=== PATIENT | female | born 1940 | race Two or more races ===

== ENCOUNTER 2020-10-12 04:50 | Emergency (ER) | payer MEDICARE, BC ==
[~2020-10-12] VITALS: Ht 157.5 cm; Wt 77.1 kg
--- NOTE | 2020-10-12 04:51 | NUR ---
BIBRA 878 FROM [facility] FOR PT FOUND SITTING ON THE FLOOR NEXT TO HER BED NOTED W/ L SHOULDER BRUISE AND PAIN ON MOVEMENT. PT AAOX2, NOT IN ANY DISTRESS, NO SOB, VSS, NAD NOTED. PENDING ER PROVIDER SANDRA
--- NOTE | 2020-10-12 05:05 | NUR ---
BROUGHT BY RADIOLOGY TO CT
--- NOTE | 2020-10-12 05:05 | NUR ---
PT IS TAKEN TO THE CT
[2020-10-12] MEDS ORDERED: DILTIAZEM HCL 30 MG TABLET ONE (05:34)
[2020-10-12] MEDS ORDERED: OXYC-117 PO (05:44)
--- NOTE | 2020-10-12 05:57 | NUR ---
[facility] ETA [phone]
[2020-10-12] MEDS ORDERED: DILTIAZEM HCL 30 MG TABLET PO ONE (06:00)
--- NOTE | 2020-10-12 06:34 | NUR ---
REPORT GIVEN TO [facility] sociology research assistant
--- NOTE | 2020-10-12 06:35 | NUR ---
REPORT GIVEN TO APRIL STAFF AT [facility]
--- NOTE | 2020-10-12 06:36 | NUR ---
PT LEFT [facility] BACK TO [facility]. PT LEFT IN STABLE CONDITION, VSS, NAD.
[2020-10-12 06:51] VITALS: BP 140/70
== END 2020-10-12 06:51 ==
LOC: ER 04:52
DX: S42.022A Displaced fracture of shaft of left clavicle, initial encounter for closed fracture (principal); I48.91 Unspecified atrial fibrillation; G30.9 Alzheimer's disease, unspecified; F02.80 Dementia in other diseases classified elsewhere, unspecified severity, without behavioral disturbance, psychotic disturbance, mood disturbance, and anxiety; X58.XXXA Exposure to other specified factors, initial encounter; Y93.89 Activity, other specified; Y92.89 Other specified places as the place of occurrence of the external cause; Y99.8 Other external cause status
CPT/HCPCS: 70450-TC; 72125-TC; 73030-TC

== ENCOUNTER 2020-10-27 16:18 | Inpatient (IN) | payer MEDICARE, BC ==
[~2020-10-27] VITALS: Ht 160 cm; Wt 60.3 kg
[~2020-10-27 16:18] MED LIST: OXYC-117 PO
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
[2020-10-27] MEDS ORDERED: RALO60TA14 PO (16:41)
[2020-10-27] MEDS ORDERED: LEVO25TA9 PO (16:41)
[2020-10-27] MEDS ORDERED: DIVA125C5 PO (16:41)
[2020-10-27] MEDS ORDERED: QUET50TA PO (16:41)
[2020-10-27] MEDS ORDERED: FURO40TA5 PO (16:41)
[2020-10-27] MEDS ORDERED: METO-357 PO (16:41)
[2020-10-27] MEDS ORDERED: APIX5TAB PO (16:41)
[2020-10-27] MEDS ORDERED: CHOL200013 PO (16:42)
--- NOTE | 2020-10-27 16:47 | NUR ---
PATIENT CHANGED INTO A GOWN, TAYLOR CATHETER FR16 IN PLACED.
[2020-10-27 17:18] LABS: BASOPHILS # (AUTO) 0.1 /CMM (0.0-0.2); EOSINOPHILS % (AUTO) 1.4 % (0.0-6.0); HEMATOCRIT 42 % (33-45); HEMOGLOBIN 13.9 g/dL (11.5-14.8); LYMPHOCYTES # (AUTO) 1.3 /CMM (0.8-4.8); LYMPHOCYTES % (AUTO) 16.3 % (20.0-44.0); MEAN CORPUSCULAR HGB CONC 33 g/dl (31.0-36.0); MEAN CORPUSCULAR VOLUME 98 fL (82-100); MONOCYTES # (AUTO) 0.5 /CMM (0.1-1.30); MONOCYTES % (AUTO) 6.8 % (2.0-12.0); NEUTROPHILS # (AUTO) 5.7 /CMM (1.8-8.9); NEUTROPHILS % (AUTO) 74.5 % (43.0-81.0); PLATELET COUNT (AUTO) 273 /CMM (150-450); RED BLOOD CELL COUNT(AUTO) 4.23 MIL/uL (4.0-5.2); WHITE BLOOD COUNT (AUTO) 7.7 K/uL (4.3-11.0)
--- NOTE | 2020-10-27 17:22 | NUR ---
PATIENT IS TAKEN TO RADIOLOGY.
[2020-10-27 17:41] LABS: ALANINE AMINOTRANSFERASE 27 U/L (12-78); ALKALINE PHOSPHATASE 145 U/L (46-116); ASPARTATE AMINOTRANSFERASE 28 U/L (15-37); BILIRUBIN,DIRECT 0.1 mg/dL (0.0-0.2); BILIRUBIN,TOTAL 0.5 mg/dL (0.2-1.0); CALCIUM, SERUM 9.3 mg/dL (8.5-10.1); CARBON DIOXIDE 27 mmol/L (21-32); CHLORIDE 102 mmol/L (98-107); CREATININE 1.2 mg/dL (0.6-1.3); GLUCOSE 136 mg/dL (74-106); POTASSIUM 3.8 mmol/L (3.5-5.1); SODIUM SERUM 140 mmol/L (136-145); TOTAL PROTEIN, SERUM 7.2 g/dL (6.4-8.2); UREA NITROGEN, BLOOD 25 mg/dL (7-18)
--- NOTE | 2020-10-27 18:07 | NUR ---
RECIEVED CALL FROM LAB. RAPID COVID19 TEST NEGATIVE.
[2020-10-27] MEDS ORDERED: HYDROMORPHONE 1 MG/1 ML DISP.SYRIN ONE (18:50)
--- NOTE | 2020-10-27 18:54 | NUR ---
ANISHA SLOAN AT BEDSIDE AND GAVE VERBAL ORDER TO GIVE DILAUDID 1MG X1 NOW, PATIENT'S HR IS IN 120S.
--- NOTE | 2020-10-27 18:55 | NUR ---
REQUESTED TELE BED FROM NURSING CONE TREATER.
[2020-10-27] MEDS ORDERED: oxyCODONE/APAP (5/325 MG) 1 UDTAB TABLET PO PRN (19:00)
[2020-10-27] MEDS ORDERED: Z GUARD REMEDY 2 OZ OINT TP PRN (19:00)
[2020-10-27] MEDS ORDERED: ONDANSETRON HCL/PF 4 MG/2 ML VIAL IVP PRN (19:00)
[2020-10-27] MEDS ORDERED: HYDROMORPHONE 1 MG/1 ML DISP.SYRIN IV ONE (19:00)
[2020-10-27] MEDS ORDERED: MAGNESIUM HYDROXIDE 30 ML UDC PO PRN (19:00)
[2020-10-27] MEDS ORDERED: HYDROCODONE/APAP 5/325MG TABLET PO PRN (19:00)
[2020-10-27] MEDS ORDERED: ZOLPIDEM TARTRATE 5 MG TABLET PO PRN (19:00)
[2020-10-27] MEDS ORDERED: ACETAMINOPHEN 325 MG TABLET PO PRN (19:00)
[2020-10-27] MEDS ORDERED: MAG HYDROX/AL HYDROX/SIMETH 30 ML UDC PO PRN (19:00)
--- NOTE | 2020-10-27 19:05 | NUR ---
REC'D REPORT FROM EVA HENDRICKSON FOR RAMY
--- NOTE | 2020-10-27 19:20 | NUR ---
CALLED PHARMACY TO VERIFY MED ORDER
[2020-10-27] MEDS ORDERED: METOPROLOL TARTRATE INJ 5 MG/5 ML AMPUL ONE (19:26)
[2020-10-27] MEDS ORDERED: METOPROLOL TARTRATE INJ 5 MG/5 ML AMPUL IV ONE (19:30)
--- NOTE | 2020-10-27 20:05 | NUR ---
US AT BEDSIDE
--- NOTE | 2020-10-27 20:17 | NUR ---
TELE 116-2
--- NOTE | 2020-10-27 20:22 | NUR ---
ATTEMPTED TO GIVE REPORT RN BUSY. WILL CALL AGAIN
--- NOTE | 2020-10-27 20:45 | NUR ---
REPORT GIVEN TO LISA AT [facility]
[2020-10-27 21:00] VITALS: BP 147/89
--- NOTE | 2020-10-27 21:00 | NUR ---
RN ADMITTING NOTE RECEIVED PATIENT FROM ER [facility]IA [place]; ADMITTING DIAGNOSIS OF L HIP FRACTURE, AFIB, R/O COVID; RESULTS PENDING. PATIENT AO X 1. IN NO S/SX OF ACUTE DISTRESS AT THIS TIME. PATIENT'S BREATHING IS EVEN AND UNLABORED. PATIENT IS ON 2 L OF OXYGEN VIA NC, TOLERATING WELL, SATURATION AT 100%. PATIENT ON TELE MONITOR READING AFIB UNCONTROLLED, HR IS 120-130'S. NOTED IV SITE ON R HAND 20G, AND LFA 18G, BOTH FLUSHING AND PATENT, SALINE LOCKED. NO S/S OF INFECTION OR INFILTRATION. PATIENT ON LEFT SHOULDER SLING, DISCOLORATION NOTED ON THE RIGHT UPPER ARM, PHOTO TAKEN AND PLACED IN CHART. PATIENT KEPT CLEAN , DRY AND COMFORTABLE. SAFETY MEASURES IMPLEMENTED. PATIENT BED ALARM IS ON. HEAD OF BED ELEVATED. BED IS LOCKED, IN LOWEST POSITION AND SIDE RAILS UP. CALL LIGHT WITHIN REACH OF THE PATIENT. ISOLATION PRECAUTIONS IN PLACE. WILL CONTINUE TO MONITOR AND REASSESS FOR ANY CHANGES. WILL ATTEND TO ALL MD ADMITTING ORDERS.
[2020-10-27] MEDS: IV NS 0.9% 1,000 ML IV PRN (22:18)
[2020-10-28] VITALS: BP 138/89
[2020-10-28 04:00] VITALS: BP 107/54
--- NOTE | 2020-10-28 04:11 | NUR ---
RN NOTE NOTED PATIENT AFIB UNCONTROLLED ON THE MONITOR SUSTAINED AT 130-150'S. PAIN MEDICATION ADMINISTERED, TELE READING REMAINS AFIB UNCONTROLLED AT 140'S. DR TOMAS WAS NOTIFIED, RECEIVED ORDERS FOR CARDIZEM 10 MG IV PUSH X1. FORECAST ANALYST WAS MADE AWARE.
[2020-10-28] MEDS: HYDROMORPHONE 1 MG/1 ML DISP.SYRIN IV PRN ×3 (04:20→14:55)
[2020-10-28] MEDS ORDERED: DILTIAZEM HCL 50 MG IV IV ONE (05:00)
[2020-10-28] MEDS: DILTIAZEM HCL 25 MG IV ONE ×2 (05:07→05:24)
--- NOTE | 2020-10-28 06:30 | NUR ---
RN NOTE NOTED PATIENT TRYING TO PULL OUT TAYLOR CATHETER, HAS BEEN REMOVING NASAL CANNULA, AND TRYING TO PULL OUT IV LINES. COMPOTYPE OPERATOR AWARE. DR TOMAS WAS NOTIFIED. AWAITING ORDERS. ENDORSED TO JUSTINA VELASQUEZ FOR FOLLOW UP, AND FOR CONTINUATION OF CARE
[2020-10-28 06:47] LABS: BASOPHILS % (AUTO) 0.3 % (0.0-2.0); EOSINOPHILS % (AUTO) 0.3 % (0.0-6.0); HEMATOCRIT 35 % (33-45); HEMOGLOBIN 11.7 g/dL (11.5-14.8); LYMPHOCYTES # (AUTO) 1.3 /CMM (0.8-4.8); LYMPHOCYTES % (AUTO) 13.6 % (20.0-44.0); MEAN CORPUSCULAR HGB CONC 34 g/dl (31.0-36.0); MEAN CORPUSCULAR VOLUME 98 fL (82-100); MONOCYTES # (AUTO) 0.8 /CMM (0.1-1.30); MONOCYTES % (AUTO) 7.7 % (2.0-12.0); NEUTROPHILS # (AUTO) 7.7 /CMM (1.8-8.9); NEUTROPHILS % (AUTO) 78.1 % (43.0-81.0); PLATELET COUNT (AUTO) 251 /CMM (150-450); RED BLOOD CELL COUNT(AUTO) 3.56 MIL/uL (4.0-5.2); WHITE BLOOD COUNT (AUTO) 9.9 K/uL (4.3-11.0)
[2020-10-28 07:11] LABS: ALANINE AMINOTRANSFERASE 19 U/L (12-78); ALBUMIN 2.6 g/dL (3.4-5.0); ALKALINE PHOSPHATASE 118 U/L (46-116); ASPARTATE AMINOTRANSFERASE 25 U/L (15-37); BILIRUBIN,TOTAL 0.6 mg/dL (0.2-1.0); CALCIUM, SERUM 8.4 mg/dL (8.5-10.1); CARBON DIOXIDE 30 mmol/L (21-32); CHLORIDE 106 mmol/L (98-107); CREATININE 1.1 mg/dL (0.6-1.3); GLUCOSE 115 mg/dL (74-106); MAGNESIUM 2.2 mg/dL (1.8-2.4); PHOSPHORUS 3.2 mg/dL (2.5-4.9); SODIUM SERUM 144 mmol/L (136-145); TOTAL PROTEIN, SERUM 6.3 g/dL (6.4-8.2); UREA NITROGEN, BLOOD 20 mg/dL (7-18)
[2020-10-28 07:14] LABS: CHOLESTEROL 180 mg/dL (<200); HDL CHOLESTEROL 47 mg/dL (40-60); LDL 109 mg/dL (0-99); TRIGLYCERIDES 123 mg/dL (30-150)
--- NOTE | 2020-10-28 07:48 | NUR ---
RECEIVED PATIENT IN BED. NO ACUTE DISTRESS NOTED. PATIENT ON 2L O2 VIA NC, SATURATING WELL. PATIENT ALERT & ORIENTED X1. PATIENT REMINDED TO NOT GET UP. PATIENT ON MANAGER OF FINANCIAL PLANNING, A. FIB NON-CONTROLLED NOTED. PATIENT FC IN PLACE, INTACT, DRAINING TO GRAVITY. PATIENT R HAND & LFA IV ACCESS INTACT, PATENT. PATIENT SAFETY MEASURES MAINTAINED. CALL LIGHT WITHIN REACH. WILL CONTINUE TO MONITOR.
[2020-10-28 08:00] VITALS: BP 136/74
[2020-10-28] MEDS: DIVALPROEX SODIUM 125 MG CAP.SPRINK PO SCH ×2 (08:54→17:20)
[2020-10-28] MEDS: CHOLECALCIFEROL 1,000 UNIT TABLET (VIT D3) PO SCH (08:54)
[2020-10-28] MEDS: METOPROLOL SUCCINATE 50 MG TAB.SR.24H PO SCH ×3 (08:54→17:20)
[2020-10-28] MEDS: LEVOTHYROXINE SODIUM 25 MCG TABLET PO SCH (08:54)
[2020-10-28] MEDS: QUETIAPINE FUMARATE 25 MG TABLET PO SCH ×2 (08:54→17:20)
[2020-10-28] MEDS ORDERED: METOPROLOL SUCCINATE 50 MG TAB.SR.24H PO SCH (09:00)
[2020-10-28] MEDS: DIGOXIN INJ 0.5 MG/2 ML AMPUL IV SCH ×2 (11:58→17:19)
[2020-10-28 12:00] VITALS: BP 108/69
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
[2020-10-28 16:00] VITALS: BP 104/61
--- NOTE | 2020-10-28 19:18 | NUR ---
PATIENT IN BED. NO ACUTE DISTRESS NOTED. PATIENT ON 2L O2 VIA NC, SATURATING WELL. PATIENT ALERT & ORIENTED X1. PATIENT REMINDED TO NOT GET UP. PATIENT ON HORTICULTURAL FARMER, A. FIB NON-CONTROLLED NOTED. PATIENT FC IN PLACE, INTACT, DRAINING TO GRAVITY. PATIENT R HAND & LFA IV ACCESS INTACT, PATENT. PATIENT BILATERAL SOFT RESTRAINTS IN PLACE. PATIENT SAFETY MEASURES MAINTAINED. CALL LIGHT WITHIN REACH. WILL ENDORSE PLAN OF CARE TO ONCOMING SHIFT
--- NOTE | 2020-10-28 19:45 | NUR ---
RN NOTE RECEIVED PT IN BED, AO X 1. ON O2 VIA NC AT 2LPM SATING AT 97 %. NO RESP DISTRESS NOTED. ON TELE MONITORING SHOWS AFIB CONTOROLLED WITH HR OF 86. WITH LEFT ARM SKIN DISCOLORATION, SLING ON. WITH BILATERAL WRIST SOF RESTRAINT, SKIN AND CIRCULATION WNL. TAYLOR IN PLACE WITH DARK GEORGIE URINE OUTPUT. ALL SAFETY MEASURES IMPLEMENTED PER PROTOCOL. CALL LIGHT WITHIN REACH. BED LOCKED IN LOWEST POSITION. BED ALARM ON. WILL CONTINUE TOO MONITOR.
[2020-10-28 20:00] VITALS: BP 107/54
[2020-10-28] MEDS ORDERED: ANESTHESIA TRAY IN PYXIS 1 EA TRAY MC ONE (23:31)
[2020-10-29] VITALS: BP 119/78
[2020-10-29] MEDS: DIGOXIN INJ 0.5 MG/2 ML AMPUL IV SCH
[2020-10-29] MEDS: HYDROMORPHONE 1 MG/1 ML DISP.SYRIN IV PRN (00:35)
[2020-10-29] MEDS: IV NS 0.9% 1,000 ML IV PRN (02:40)
[2020-10-29 04:00] VITALS: BP 126/62
--- NOTE | 2020-10-29 06:15 | NUR ---
RN NOTE NOTED INFILTRATION ON PT IV LINE ON LEFT FOREARM, SKIN INTACT. CHARGE NURSE REINSERTED NEW IV LINE ON LEFT LOWER FOREARM, WITH GOOD BLOOD RETURN. NO SIGNS OF INFILTRATION NOTED. REMOVED PREVIOUS IV. NO SIGNS OF INFECTION NOTED.
--- NOTE | 2020-10-29 06:40 | NUR ---
RN NOTE LEFT VOICE MESSAGE TO PTS DAUGHTER BEATRIZ, REGARDING CONSENT FOR SURGERY IM RODDING OF LEFT HIP.
--- NOTE | 2020-10-29 07:00 | NUR ---
RN NOTE PT FOR SURGERY, NO LABS ORDERED. BULLDOZER/LOADER/COMPACTOR/SCRAPER EFRAIN NOTIFIED, ORDERED STAT LABS. NOTED AND CARRIED OUT. PT REMAIN STABLE. AFIB CONTROLLED. NO DISTRESS NOTED. NEW IV ON LFA G 20 PATENT AND INTACT. CONTINUE ON NS AT 75 ML/HR. NO SIGNS OF INFILTRATION NOTED. TAYLOR CATH INDWELLING WELL. HANDLE PT GENTLY. NEEDS ATTENDED. CALL LIGHT WITHIN REACH AT ALL TIMES. NO CALL BACK YET FROM PTS DAUGHTER. WILL ENDORSE TO NEXT SHIFT NURSE.
[2020-10-29] MEDS ORDERED: BUPIVACAINE 0.5 % PF 150 MG/30 ML VIAL ONE (07:19)
[2020-10-29] MEDS ORDERED: ANESTHESIA TRAY IN PYXIS 1 EA TRAY MC ONE (07:19)
[2020-10-29] MEDS ORDERED: BACITRACIN 50000 UNITS/VIAL ONE (07:19)
[2020-10-29] MEDS ORDERED: BUPIVACAINE 0.25% 75 MG/30 ML VIAL ONE (07:19)
[2020-10-29 08:00] VITALS: BP 134/72
--- NOTE | 2020-10-29 08:00 | NUR ---
RN OPENING NOTE RECEIVED PT, RESTING IN BED. A/O X1. NO COMPLAINT OF PAIN. ON 2L O2 VIA NC. NO RESPIRATORY DISTRESS PRESENT. CONTROLLED AFIB RECORDED VIA EXTERNAL MONITOR. F/C PRESENT. DRAINGING WITH CLEAR YELLOW FLUID. ON BEDREST. DISCOLORATION PRESENT ON L ARM. L HIP AND L CLAVICLE FRACTURE PRESENT. NPO DUE TO UPCOMING SURGERY. HL PRESENT IN R HAND 20G. HL PRESENT IN L FA 20G. SAFETY MEASURES IN PLACE. SIDE RAILS RAISED. BED LOWERED. CALL LIGHT WITHIN REACH. WILL CONTINUE TO MONITOR.
[2020-10-29] MEDS ORDERED: MIDAZOLAM HCL 2 MG/2ML VIAL ONE (08:02)
[2020-10-29] MEDS ORDERED: FENTANYL PF 100MCG/2ML AMPUL ONE ×2 (08:02→10:23)
[2020-10-29] MEDS ORDERED: ROCURONIUM BROMIDE 50 MG/5 ML ONE (08:03)
[2020-10-29] MEDS ORDERED: SEVOFLURANE 250 ML BOTTLE IH ONE (08:35)
[2020-10-29] MEDS: DIVALPROEX SODIUM 125 MG CAP.SPRINK PO SCH ×2 (09:00→18:17)
[2020-10-29] MEDS: CHOLECALCIFEROL 1,000 UNIT TABLET (VIT D3) PO SCH (09:00)
[2020-10-29] MEDS: LEVOTHYROXINE SODIUM 25 MCG TABLET PO SCH (09:00)
[2020-10-29] MEDS: QUETIAPINE FUMARATE 25 MG TABLET PO SCH ×2 (09:00→18:17)
[2020-10-29] MEDS: METOPROLOL SUCCINATE 50 MG TAB.SR.24H PO SCH ×2 (09:00→18:18)
[2020-10-29] MEDS ORDERED: DESFLURANE 240 ML BOTTLE IH ONE (09:59)
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
[2020-10-29 12:00] VITALS: BP 134/72
[2020-10-29 12:32] LABS: BASOPHILS % (AUTO) 0.2 % (0.0-2.0); HEMATOCRIT 31 % (33-45); HEMOGLOBIN 10.1 g/dL (11.5-14.8); LYMPHOCYTES # (AUTO) 0.6 /CMM (0.8-4.8); LYMPHOCYTES % (AUTO) 4.1 % (20.0-44.0); MEAN CORPUSCULAR HGB CONC 33 g/dl (31.0-36.0); MEAN CORPUSCULAR VOLUME 99 fL (82-100); MONOCYTES # (AUTO) 0.9 /CMM (0.1-1.30); MONOCYTES % (AUTO) 6.2 % (2.0-12.0); NEUTROPHILS # (AUTO) 12.4 /CMM (1.8-8.9); NEUTROPHILS % (AUTO) 89.5 % (43.0-81.0); PLATELET COUNT (AUTO) 213 /CMM (150-450); RED BLOOD CELL COUNT(AUTO) 3.14 MIL/uL (4.0-5.2); WHITE BLOOD COUNT (AUTO) 13.9 K/uL (4.3-11.0)
[2020-10-29 13:23] LABS: CALCIUM, SERUM 8.2 mg/dL (8.5-10.1); MAGNESIUM 2.2 mg/dL (1.8-2.4); PHOSPHORUS 2.7 mg/dL (2.5-4.9); POTASSIUM 4.1 mmol/L (3.5-5.1)
[2020-10-29 16:00] VITALS: BP 111/74
[2020-10-29] MEDS: ANCEF 1 GM/50 ML D5W IV SCH ×2 (17:47)
[2020-10-29] MEDS: IV D5/0.45 NACL W/20 MEQ KCL 1L IV PRN ×2 (17:48)
[2020-10-29] MEDS: HYDROCODONE/APAP 10/325MG TABLET PO PRN (18:16)
--- NOTE | 2020-10-29 19:00 | NUR ---
RN NOTE RECEIVED PATIENT IN BED, CONFUSED, IN NO S/SX OF ACUTE DISTRESS AT THIS TIME. PATIENT'S BREATHING IS EVEN AND UNLABORED. PATIENT IS ON 2 L OF OXYGEN VIA NC, TOLERATING WELL, SATURATION AT 96%, HR IS 92. NOTED IV SITE AT LFA 20G, PATENT AND FLUSHING WELL, NO S/S OF INFECTION OR INFILTRATION NOTED, WITH D5 1/2 NS + 20 MEQ KCL INFUSING AT 75 ML/HR. NOTED SOFT WRIST RESTRAINTS AT B WRISTS, SKIN AND CIRCULATION CHECKED. TAYLOR CATHETER CONNECTED TO URINE BAG IN PLACE, CONNECTED TO A CLEAR, YELLOW OUTPUT. POST OP WOUND AT L HIP/THIGH NOTED WITH DRESSING DRY AND INTACT. SAFETY MEASURES IMPLEMENTED. PATIENT BED ALARM IS ON. HEAD OF BED ELEVATED. BED IS LOCKED, IN LOWEST POSITION AND SIDE RAILS UP. CALL LIGHT WITHIN REACH OF THE PATIENT. WILL CONTINUE TO MONITOR AND REASSESS FOR ANY CHANGES.
--- NOTE | 2020-10-29 19:38 | NUR ---
RN CLOSING NOTE PT IS RESTING IN BED ASLEEP. AROUSABLE TO LIGHT TOUCH. A/O X1 AND VIETNAMESE SPEAKING. NO COMPLAINT OF PAIN. CURRENTLY 2L O2 VIA NC. NO SOB OR RESPRATORY DISTRESS PRESENT. CONTROLLED A FIB RECORDED VIA EXTERNAL MONITOR. ON BEDREST. L ARM DISCOLORATION NOTED. L HIP AND L LOWER THIGH SURGICAL INCISIONS PRESENT. HL PRESENT IN R HAND, 20G. HL PRESENT IN L FA [address] ME[address] PL[address] SIDE RAILS RAISED. BED LOWERED. CALL LIGHT WITHIN REACH. ROUTINE MEDS GIVEN. REPORT GIVEN TO NIGHT NURSE.
[2020-10-29 20:00] VITALS: BP 110/51
[2020-10-30] VITALS: BP 110/51
[2020-10-30] MEDS: ANCEF 1 GM/50 ML D5W IV SCH ×4 (00:43→08:13)
[2020-10-30] MEDS: MORPHINE SULFATE INJ 2 MG/ML DISP.SYRIN IV PRN (05:46)
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
[2020-10-30 08:00] VITALS: BP 109/59
[2020-10-30] MEDS: DIVALPROEX SODIUM 125 MG CAP.SPRINK PO SCH ×2 (08:01→17:12)
[2020-10-30] MEDS: LEVOTHYROXINE SODIUM 25 MCG TABLET PO SCH (08:01)
[2020-10-30] MEDS: CHOLECALCIFEROL 1,000 UNIT TABLET (VIT D3) PO SCH (08:01)
[2020-10-30] MEDS: METOPROLOL SUCCINATE 50 MG TAB.SR.24H PO SCH ×2 (08:01→17:00)
[2020-10-30] MEDS: QUETIAPINE FUMARATE 25 MG TABLET PO SCH ×2 (08:02→17:13)
[2020-10-30] MEDS: IV D5/0.45 NACL W/20 MEQ KCL 1L IV PRN ×2 (08:26)
[2020-10-30 08:50] LABS: IRON, SERUM 14 ug/dl (50-175); TOTAL IRON BINDING CAPACITY 207 ug/dl (250-450)
[2020-10-30 09:03] LABS: FERRITIN 253 ng/mL (8-388)
--- NOTE | 2020-10-30 09:30 | NUR ---
RN NOTES DUE MEDS GIVEN
[2020-10-30 15:39] LABS: BILIRUBIN,URINE NEGATIVE (NEGATIVE); COLOR,URINE YELLOW (YELLOW); LEUKOCYTE ESTERASE ,URINE MODERATE (NEGATIVE); NITRITE, URINE POSITIVE (NEGATIVE); PROTEIN,URINE TRACE mg/dl (NEGATIVE); UGLUCOSE NEGATIVE (NEGATIVE)
[2020-10-30 15:45] LABS: BACTERIA,URINE 3+ /HPF (None Seen); URINE AMORPHOUS PHOSPHATES Few /HPF (None Seen); WBC,URINE 51-80 /HPF (0-3)
[2020-10-30 16:00] VITALS: BP 114/57
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
--- NOTE | 2020-10-30 19:30 | NUR ---
RN OPENING NOTES: RECEIVED PT A/OX1 (CONFUSED) IN BED RESTING COMFORTABLY. PATIENT IN NO S/SX OF ACUTE DISTRESS AT THIS TIME. NO SOB NOTED. PATIENT'S BREATHING IS EVEN AND UNLABORED. PATIENT IS ON 2L OF OXYGEN VIA NC; TOLERATING WELL. PATIENT ON REGULAR DIET; TOLERATES WELL. NOTED IV SITE ON L FA; PATENT, INTACT AND FLUSHING WELL; NO S/S OF INFECTION OR INFILTRATION. TAYLOR CATH IN PLACE, MODERATE URINE OUTPUT NOTED BILATERAL SOFT WRIST RESTRAINTS IN PLACE, ASSESSED PER PROTOCOL. POST OP WOUND DRESSING NOTED TO BE SECURED AND INTACT NO SIGNS OF INFECTION AT THIS TIME. SAFETY MEASURES HAVE BEEN PROVIDED AND IMPLEMENTED. PATIENT BED ALARM IS ON. HEAD OF BED ELEVATED. BED IS LOCKED, IN LOWEST POSITION AND SIDE RAILS UP. CALL LIGHT WITHIN REACH OF THE PATIENT. APPLICABLE ISOLATION PRECAUTIONS IN PLACE. WILL CONTINUE TO MONITOR AND REASSESS FOR ANY CHANGES AND WILL CARRY OUT ANY ONGOING AND ACTIVE MD ORDER.
[2020-10-30 20:00] VITALS: BP 134/69
--- NOTE | 2020-10-30 23:00 | NUR ---
RN NOTES PATIENT REMAINS IN NO ACUTE RESPIRATORY DISTRESS AT THIS TIME, NO CHANGES TO CONDITION/STATUS. MECHANICAL ESTIMATOR WELL AWARE. WILL CONTINUE TO MONITOR AND REASSESS FOR ANY CHANGES THROUGHOUT THE SHIFT
--- NOTE | 2020-10-31 03:00 | NUR ---
RN NOTES NO CHANGES IN PATIENT CONDITION AT THIS TIME PATIENT VITALS STABLE, NO SIGNS OF ACUTE RESPIRATORY DISTRESS. PATIENT STILL IN BED SLEEPING COMFORTABLY. NO COMPLAINTS OF PAIN OR ANY DISCOMFORT AT THIS TIME. WILL CONTINUE TO MONITOR AND REASSESS FOR ANY CHANGES THROUGHOUT THE SHIFT.
[2020-10-31 04:00] VITALS: BP 134/67
[2020-10-31] MEDS: MORPHINE SULFATE INJ 2 MG/ML DISP.SYRIN IV PRN (05:16)
--- NOTE | 2020-10-31 06:44 | NUR ---
RN CLOSING NOTES PATIENT REMAINS IN ROOM IN NO SIGNS OF RESPIRATORY DISTRESS. PATIENT SATURATING 93% OF 02. VITAL SIGNS WNL. IV LINE MAINTAINED, INTACT, PATENT AND FLUSHING, NO SITE REDNESS OR INFILTRATION. SAFETY PRECAUTIONS IN PLACE AND COMFORT MEASURES RENDERED. BED IN LOWEST POSITION, CALL LIGHT WITHIN REACH, BREAKS ON, SIDE RAILS UP. ALL NEEDS ATTENDED, MEDICATIONS GIVEN SCHEDULED AND ORDERED ; SHIFT ASSESSMENT/BEDBATH/SKIN CARE DONE. PATIENT KEPT CLEAN AND DRY. WILL ENDORSE TO INCOMING SHIFT FOR RAMY WITH ALL PERTINENT INFO REGARDING PATIENT STATUS.
[2020-10-31 07:27] LABS: BASOPHILS % (AUTO) 0.5 % (0.0-2.0); EOSINOPHILS % (AUTO) 0.4 % (0.0-6.0); HEMATOCRIT 22 % (33-45); HEMOGLOBIN 7.4 g/dL (11.5-14.8); LYMPHOCYTES # (AUTO) 0.9 /CMM (0.8-4.8); LYMPHOCYTES % (AUTO) 9.3 % (20.0-44.0); MEAN CORPUSCULAR HGB CONC 34 g/dl (31.0-36.0); MEAN CORPUSCULAR VOLUME 98 fL (82-100); MONOCYTES % (AUTO) 9.7 % (2.0-12.0); NEUTROPHILS % (AUTO) 80.1 % (43.0-81.0); PLATELET COUNT (AUTO) 194 /CMM (150-450); RED BLOOD CELL COUNT(AUTO) 2.24 MIL/uL (4.0-5.2)
--- NOTE | 2020-10-31 07:41 | NUR ---
ms rn note patient in bed ,alert with confusion with soft restrain as ordered trying to remove all lines rt thigh with dressing intact, rt fa hl not flushing well ,new hl on rt ac placed with good blood return and flushed well, on o2 3 l no sob noted at this time , bed in lowest and locked position trying to fee patint but still eat very little, will cont to monitor closely. bed in lowest and locked position , call light within reach Addendum: 10/31/20 at 1354 by MARQUES STILES RN correction lt thigh with dressing intact
[2020-10-31 07:54] LABS: CALCIUM, SERUM 8.4 mg/dL (8.5-10.1); CREATININE 0.8 mg/dL (0.6-1.3); MAGNESIUM 2.1 mg/dL (1.8-2.4); POTASSIUM 4.5 mmol/L (3.5-5.1); TOTAL PROTEIN, SERUM 5.6 g/dL (6.4-8.2)
[2020-10-31 08:00] VITALS: BP 138/75
[2020-10-31] MEDS: QUETIAPINE FUMARATE 25 MG TABLET PO SCH ×2 (08:03→16:13)
[2020-10-31] MEDS: DIVALPROEX SODIUM 125 MG CAP.SPRINK PO SCH ×2 (08:04→16:13)
[2020-10-31] MEDS: CHOLECALCIFEROL 1,000 UNIT TABLET (VIT D3) PO SCH (08:04)
[2020-10-31] MEDS: LEVOTHYROXINE SODIUM 25 MCG TABLET PO SCH (08:04)
[2020-10-31] MEDS: METOPROLOL SUCCINATE 50 MG TAB.SR.24H PO SCH ×2 (08:05→16:13)
[2020-10-31] MEDS: ENOXAPARIN SODIUM 40 MG/0.4 ML DISP.SYRIN SQ SCH (10:07)
[2020-10-31] MEDS: NEUTRA PHOS 1 POWD.PACKET PO SCH ×2 (10:08→17:02)
--- NOTE | 2020-10-31 10:30 | NUR ---
ms rn note pt at bedside able to do some little exercise , will cont to monitor
--- NOTE | 2020-10-31 13:38 | NUR ---
ms rn note try to feed patient again, able to eat pudding well ,will cont to monitor ,not in distress
--- NOTE | 2020-10-31 13:46 | NUR ---
ms rn note Elenita rn powder line repairer at bedside aware that patient hg today 7.[address] kelsey hylton to give Lovenox also aware that patient has dry dressing on lt hip and it was reinforced by international bankernight supervisor awaiting ortho to f\u
[2020-10-31] MEDS: SOD FERRIC GLUC 125 MG in IV NS 0.9% 100 ML IV SCH (14:00)
--- NOTE | 2020-10-31 15:16 | NUR ---
MS RN NOTE PICC LINE NURSE AT BEDSIDE OK TO PLACE MID LINE PER ORDER ANISHA RN TRANSPORTATION ANALYST, PATIENT IS HARD STICK
[2020-10-31 16:00] VITALS: BP 119/59
--- NOTE | 2020-10-31 17:41 | NUR ---
MS RN NOTE HAVING DINNER ,FED BY CHIEF MEDICAL PHYSICIST ATE 75% OF FOOD ,KEEP CLEAN DRY , ALL NEEDS ATTENDED CALL LIGHT WITHIN REACH
--- NOTE | 2020-10-31 17:43 | NUR ---
MS RN NOTE UNABLE TO REMOVE ALL RESTRAINT AT THIS TIME, PATIENT AT RISK TO REMOVE ALL LINES WILL CONT TO MONITOR CLOSELY
--- NOTE | 2020-10-31 19:13 | NUR ---
ms rn note resting comfortably , all needs attended, no sob noted ,will cont to monitor
[2020-10-31 20:00] VITALS: BP 128/60
--- NOTE | 2020-10-31 20:00 | NUR ---
MS RN NOTE PT IN BED AWAKE BUT CONFUSED. A/O X 1. NO SOB, NO DISTRESS OR DISCOMFORT NOTED. NO S/S OF PAIN NOTED. PT ON 2L VIA N/C O2 SAT 99%. RAC #20G AND MIDLINE IN RT UPPER ARM INTACT AND PATENT. SIDE RAILS UP X 2 AND CALL LIGHT WITHIN REACH. CONTINUE TO MONITOR HER. Addendum: 10/31/20 at 2213 by EMILIANO CRUZ RN PT WITH BILATERAL SOFT WRIST RESTRAINTS. SKIN AROUND WNL.
--- NOTE | 2020-11-01 01:14 | NUR ---
MS RN NOTE PT IN BED ASLEEP, NO DISTRESS OR DISCOMFORT NOTED. NOTED PT WITH LOW GRADE FEVER 100.1 ENDORSE TO NURSE KARI FOR CONTINUE TO CARE.
[2020-11-01 04:00] VITALS: BP 110/45
--- NOTE | 2020-11-01 06:31 | NUR ---
RN NOTES ALERT AND ORIENTED X1, 2LPM VIA NC, FACIAL GRIMACING, RESTLESS, BILATERAL WRIST RESTRAINTS, FOLLOWED MONITORING PROTOCOL, NO SKIN BREAKDOWN, TAYLOR CATHETER DRAINING WELL, GE[place]GIE COLORED URINE, BM X1, SOFT AND FORMED, LEFT HIP DRESSING WITH DRIED DRAINAGE, UNABLE TO VISUALIZE INCISION SITE, DRESSING IN PLACE, FOR PT EVAL AND TREATMENT, FALL PRECAUTION
[2020-11-01 06:38] LABS: BASOPHILS % (AUTO) 0.5 % (0.0-2.0); EOSINOPHILS % (AUTO) 0.9 % (0.0-6.0); HEMATOCRIT 21 % (33-45); LYMPHOCYTES # (AUTO) 0.9 /CMM (0.8-4.8); LYMPHOCYTES % (AUTO) 9.8 % (20.0-44.0); MEAN CORPUSCULAR HGB CONC 34 g/dl (31.0-36.0); MEAN CORPUSCULAR VOLUME 98 fL (82-100); MONOCYTES # (AUTO) 0.8 /CMM (0.1-1.30); NEUTROPHILS # (AUTO) 7.3 /CMM (1.8-8.9); NEUTROPHILS % (AUTO) 79.8 % (43.0-81.0); PLATELET COUNT (AUTO) 223 /CMM (150-450); RED BLOOD CELL COUNT(AUTO) 2.13 MIL/uL (4.0-5.2); WHITE BLOOD COUNT (AUTO) 9.2 K/uL (4.3-11.0)
--- NOTE | 2020-11-01 07:37 | NUR ---
RN OPENING NOTE PATIENT RECEIVED IN BED RESTING IN SEMI-FOWLERS POSITION. PATIENT IS ON BILATERAL UPPER SOFT WRIST RESTRAINTS. POSITIVE CIRCULATION, SENSATION, AND MOVEMENT. PATIENT ON O2 THERAPY VIA NC AT 2 LPM TOLERATING WELL. PATIENT HAS LEFT UPPER ARM SLING. NO RESPIRATORY DISTRESS NOTED AT THIS TIME. PATIENT DENIES PAIN AT THE MOMENT. SAFETY PRECAUTIONS IMPLEMENTED, BED LOCKED IN LOWEST POSITION, SIDE RAILS UP X2, CALL LIGHT WITHIN REACH. WILL CONTINUE TO MONITOR CLIENT AND PROVIDE CARE THROUGHOUT SHIFT.
[2020-11-01 08:34] LABS: BAND % (MANUAL) 2 % (0.0-5.0); LYMPHOCYTES % (MANUAL) 6 % (16-48); MONOCYTES % (MANUAL) 8 % (0-11.0); NEUTROPHILS % (MANUAL) 84 (42-76)
[2020-11-01] MEDS: DIVALPROEX SODIUM 125 MG CAP.SPRINK PO SCH ×2 (09:27→17:06)
[2020-11-01] MEDS: LEVOTHYROXINE SODIUM 25 MCG TABLET PO SCH (09:35)
[2020-11-01] MEDS: QUETIAPINE FUMARATE 25 MG TABLET PO SCH ×2 (09:35→17:11)
[2020-11-01] MEDS: METOPROLOL SUCCINATE 50 MG TAB.SR.24H PO SCH ×2 (09:37→17:09)
[2020-11-01] MEDS: CHOLECALCIFEROL 1,000 UNIT TABLET (VIT D3) PO SCH (09:37)
[2020-11-01] MEDS: ENOXAPARIN SODIUM 40 MG/0.4 ML DISP.SYRIN SQ SCH (09:37)
[2020-11-01 12:00] VITALS: BP 124/94
[2020-11-01] MEDS: HYDROCODONE/APAP 10/325MG TABLET PO PRN (12:37)
[2020-11-01] MEDS: SOD FERRIC GLUC 125 MG in IV NS 0.9% 100 ML IV SCH (14:21)
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
--- NOTE | 2020-11-01 19:44 | NUR ---
RN CLOSING NOTE PATIENT IN BED RESTING IN SEMI-FOWLERS POSITION. PATIENT IS ON BILATERAL UPPER SOFT WRIST RESTRAINTS. POSITIVE CIRCULATION, SENSATION, AND MOVEMENT. PATIENT ON O2 THERAPY VIA NC AT 2 LPM TOLERATING WELL. PATIENT HAS LEFT UPPER ARM SLING. NO RESPIRATORY DISTRESS NOTED AT THIS TIME. PATIENT DENIES PAIN AT THE MOMENT. WOUND CARE PROVIDED FOR CLIENT. PRN PAIN MEDICATION ADMINISTERED FOR LEFT HIP PAIN. SAFETY PRECAUTIONS IMPLEMENTED, BED LOCKED IN LOWEST POSITION, SIDE RAILS UP X2, CALL LIGHT WITHIN REACH. WILL ENDORSE CARE TO UPCOMING SHIFT.
--- NOTE | 2020-11-01 19:49 | NUR ---
RN NOTE PATIENT IN BED RESTING, A/OX1, CONFUSED. ON O2 2L VIA NC, O2 SAT WNL. WITH TAYLOR CATH PATENT AND INTACT, DRAINING YELLOW URINE TO GRAVITY. BILATERAL SOFT WRIST RESTRAINTS ON, CIRCULATION AND SKIN CHECKED. NO S/S OF SKIN BREAKDOWN. WITH RIGHT UPPER ARM MIDLINE #18 AND RIGHT AC #20 PATENT AND INTACT. WITH LEFT HIP AND THIGH KARLA, DRESSING DRY AND INTACT. BED LOCKED AND IN LOWEST POSITION. SAFETY MEASURES IN PLACE. CALL LIGHT WITHIN REACH. WILL CONTINUE TO MONITOR.
[2020-11-01 20:00] VITALS: BP 123/53
[2020-11-02 00:30] VITALS: BP 134/77
--- NOTE | 2020-11-02 00:30 | NUR ---
TRANSFERRED PT TO ROOM 306-2 VIA ACLS PROTOCOL IN STABLE CONDITION, NO DISTRESS NOTED. REPORT GIVEN TO GALLO VELASQUEZ FOR CONTINUATION OF CARE. CHARGE NURSE MADE AWARE. Addendum: 11/02/20 at 0203 by LAST GOMEZ RN ALL BELONGINGS TRANSFERRED WITH PATIENT.
[2020-11-02 02:09] VITALS: BP_SYST 100; BP_SYST 125; BP_DIAS 54; BP_DIAS 67
[2020-11-02 04:00] VITALS: BP 100/54
--- NOTE | 2020-11-02 07:30 | NUR ---
ms rn received on bed, awake,alert,oriented x1,not in any form of distress, respirations ev3en and unlabored,no sob noted, lungs are diminished,abdomen soft,positive bowel sounds,denies pain at this time, will monitor patient's condition.
--- NOTE | 2020-11-02 07:51 | NUR ---
RN NOTE PATIENT RECIVED TO FLOOR AT 0030 BLOOD RANSFUSION PLANNED VITALS ARE STABLE PATIENT HAS NO COMPLAINTS OF PAIN. LEFT HIP FRACURE AND SURGRY HAS CORRECTED. PATIENT HAS CLAVICLE FRACTURE WITH SLING IN PLACE. TAYLOR IN PLACE WELL. PATIENT TOLERATED BLOOD TRANSFUSION WELL AND NURSE WILL CONTINUE FOLLOW UP. VITALS CHARTED, PATIENT STABLE.
[2020-11-02 08:00] VITALS: BP 122/83
--- NOTE | 2020-11-02 09:06 | NUR ---
WOUND CARE CONSULT: PT PRESENTS WITH DISCOLORATION TO LEFT UPPER ARM, PRESENT ON ADMISSION. PT ALSO NOTED TO HAVE DISCOLORATION TO LEFT LOWER EXTREMITY WITH SURGICAL DRESSINGS TO LEFT HIP AND THIGH. RECOMMENDATIONS MADE FOR SKIN PROTECTION. DISCUSSED WITH NURSING STAFF. PT IS ON HUGO ISOFLEX LOW AIRLOSS BED. MD IN AGREEMENT WITH PLAN OF CARE.
[2020-11-02] MEDS: LEVOTHYROXINE SODIUM 25 MCG TABLET PO SCH (09:07)
[2020-11-02] MEDS: QUETIAPINE FUMARATE 25 MG TABLET PO SCH ×2 (09:08→17:45)
[2020-11-02] MEDS: METOPROLOL SUCCINATE 50 MG TAB.SR.24H PO SCH ×2 (09:08→17:44)
[2020-11-02] MEDS: CHOLECALCIFEROL 1,000 UNIT TABLET (VIT D3) PO SCH (09:09)
[2020-11-02] MEDS: DIVALPROEX SODIUM 125 MG CAP.SPRINK PO SCH ×2 (09:09→17:45)
[2020-11-02] MEDS: ENOXAPARIN SODIUM 40 MG/0.4 ML DISP.SYRIN SQ SCH (09:14)
[2020-11-02] MEDS: NEUTRA PHOS 1 POWD.PACKET PO SCH ×3 (09:15→17:44)
--- NOTE | 2020-11-02 09:30 | NUR ---
ms rn clark to gravity w/ yellowish urine output.noted w/ bilateral soft wrist restrain, no s/s of pain noted.patient noted to have left upper arm, left posterior leg bruise, will monitor patient.
--- NOTE | 2020-11-02 09:50 | NUR ---
SW received a call from [facility]'s Office stating they received the SOC 345 and will continue with their investigation. SW addressed their questions. SW will be available as needed.
--- NOTE | 2020-11-02 10:00 | NUR ---
ms naima was seen by daphne marie/ orders made and carried out.
--- NOTE | 2020-11-02 11:00 | NUR ---
ms rn was seen by pt. tolerated well.
[2020-11-02 11:26] LABS: CALCIUM, SERUM 8.6 mg/dL (8.5-10.1); CREATININE 0.9 mg/dL (0.6-1.3); POTASSIUM 4.1 mmol/L (3.5-5.1)
[2020-11-02] MEDS ORDERED: NITROFURANTOIN/NITROFURAN MAC 100 MG CAPSULE PO SCH (12:00)
[2020-11-02] MEDS: ENSURE ENLIVE 237 ML LIQUID (VANILLA) PO SCH ×2 (13:00→17:00)
--- NOTE | 2020-11-02 14:00 | NUR ---
ms [facility]
[2020-11-02 14:28] LABS: BASOPHILS # (AUTO) 0.1 /CMM (0.0-0.2); BASOPHILS % (AUTO) 0.7 % (0.0-2.0); EOSINOPHILS % (AUTO) 3.5 % (0.0-6.0); HEMATOCRIT 27 % (33-45); HEMOGLOBIN 9.1 g/dL (11.5-14.8); LYMPHOCYTES # (AUTO) 0.8 /CMM (0.8-4.8); LYMPHOCYTES % (AUTO) 9.8 % (20.0-44.0); MEAN CORPUSCULAR HGB CONC 34 g/dl (31.0-36.0); MEAN CORPUSCULAR VOLUME 97 fL (82-100); MONOCYTES # (AUTO) 0.6 /CMM (0.1-1.30); NEUTROPHILS # (AUTO) 6.9 /CMM (1.8-8.9); PLATELET COUNT (AUTO) 261 /CMM (150-450); WHITE BLOOD COUNT (AUTO) 8.7 K/uL (4.3-11.0)
[2020-11-02] MEDS: SOD FERRIC GLUC 125 MG in IV NS 0.9% 100 ML IV SCH (14:35)
[2020-11-02 14:43] LABS: EOSINOPHILS % (MANUAL) 3 % (0-4); LYMPHOCYTES % (MANUAL) 11 % (16-48); MONOCYTES % (MANUAL) 7 % (0-11.0); NEUTROPHILS % (MANUAL) 79 (42-76)
[2020-11-02] MEDS: HYDROCODONE/APAP 10/325MG TABLET PO PRN (15:06)
[2020-11-02 16:00] VITALS: BP 130/87
--- NOTE | 2020-11-02 17:00 | NUR ---
ms rn due meds given,tolerated well.
[2020-11-02 17:44] VITALS: BP 130/87
--- NOTE | 2020-11-02 19:30 | NUR ---
[facility]report given to eva mcnamara.no distress noted
== END 2020-11-02 20:20 | DRG 480 ==
LOC: ER 16:20 → TELE1 20:27 → MEDSG1 10-29 08:17 → MED 11-02 00:31
PROVIDERS: ADMIT Nurse Practitioner Acute Care; ATTEND Nurse Practitioner Family
PROC: 0QS706Z Reposition Left Upper Femur with Intramedullary Internal Fixation Device, Open Approach (ICD-10-PCS; principal; 2020-10-29)
PROC: 05HY33Z Insertion of Infusion Device into Upper Vein, Percutaneous Approach (ICD-10-PCS; 2020-11-01)
PROC: 30233N1 Transfusion of Nonautologous Red Blood Cells into Peripheral Vein, Percutaneous Approach (ICD-10-PCS; 2020-11-02)
DX: S72.142A Displaced intertrochanteric fracture of left femur, initial encounter for closed fracture (principal); G93.41 Metabolic encephalopathy; E44.0 Moderate protein-calorie malnutrition; D62 Acute posthemorrhagic anemia; N39.0 Urinary tract infection, site not specified; I48.91 Unspecified atrial fibrillation; I10 Essential (primary) hypertension; E03.9 Hypothyroidism, unspecified; F03.90 Unspecified dementia, unspecified severity, without behavioral disturbance, psychotic disturbance, mood disturbance, and anxiety; I67.2 Cerebral atherosclerosis; Z79.890 Hormone replacement therapy; Z79.01 Long term (current) use of anticoagulants; E88.09 Other disorders of plasma-protein metabolism, not elsewhere classified; R53.1 Weakness; W19.XXXA Unspecified fall, initial encounter; Y93.9 Activity, unspecified; Y92.89 Other specified places as the place of occurrence of the external cause; S42.002A Fracture of unspecified part of left clavicle, initial encounter for closed fracture; Z68.23 Body mass index [BMI] 23.0-23.9, adult; D50.9 Iron deficiency anemia, unspecified; Z20.822 Contact with and (suspected) exposure to COVID-19
CPT/HCPCS: 36415; 70450-TC; 71045-TC; 72125-TC; 73020; 73502; 73552; 73564-TC; 80048-TC; 80053-TC; 80061-TC; 80076-TC; 81001; 82550-TC; 82728-TC; 83540-TC; 83735-TC; 84100-TC; 84484-TC; 85025-TC; 85027-TC; 85610-TC; 85730-TC; 86850-TC; 87081-TC; 87086-TC; 87186-TC; 93307-TC; 97110-TC; 97112-TC; 97530-TC; A6209; A6253; C1713; C9803; G0378; J0690; J1100; J1160; J1170; J1650; J2250; J2270; J2704; J2916; J3010; J3480; J3490; J7030; J7040; J7050; J7060; P9016-BL; U0003